=== PATIENT | female | born 1980 | race Caucasian/White ===

== ENCOUNTER 2017-09-11 10:15 | Inpatient (IN) | payer OTHER ==
[~2017-09-11] VITALS: Ht 160 cm; Wt 81.6 kg
[2017-09-15] MEDS ORDERED: OBTREX DHA PRE1 EACH PO (15:32)
== END 2017-09-19 14:09 | disposition home or self-care (01) | DRG 766 ==
LOC: OB/GYN 09-16 11:54 → LDR 09-16 11:54 → OB/GYN 09-16 17:24
PROVIDERS: Obstetrics & Gynecology
PROC: 0UL70ZZ Occlusion of Bilateral Fallopian Tubes, Open Approach (ICD-10-PCS; 2017-09-16)
PROC: 4A033R1 Measurement of Arterial Saturation, Peripheral, Percutaneous Approach (ICD-10-PCS; 2017-09-16)
PROC: 10D00Z1 Extraction of Products of Conception, Low, Open Approach (ICD-10-PCS; principal; 2017-09-16 16:00)
DX: O82 Encounter for cesarean delivery without indication (principal); Z3A.38 38 weeks gestation of pregnancy; Z37.0 Single live birth; Z30.2 Encounter for sterilization; O09.523 Supervision of elderly multigravida, third trimester

== ENCOUNTER 2022-05-02 05:31 | Day surgery (SDC) | payer OTHER ==
[~2022-05-02] VITALS: Ht 160 cm; Wt 83.5 kg
[~2022-05-02 05:31] MED LIST: OBTREX DHA PRE1 EACH PO
== END 2022-05-02 21:40 | disposition home or self-care (01) ==
LOC: CIR.AMB 05:31
PROVIDERS: ATTEND Surgery
DX: D05.11 Intraductal carcinoma in situ of right breast (principal); Z90.11 Acquired absence of right breast and nipple; R92.1 Mammographic calcification found on diagnostic imaging of breast; R59.0 Localized enlarged lymph nodes; Z20.822 Contact with and (suspected) exposure to COVID-19
CPT/HCPCS: 19303; 38525; 38792; 19281; 19357; 14301; 14302; A9541; L8699

== ENCOUNTER 2022-07-25 05:48 | Day surgery (SDC) | payer OTHER ==
[~2022-07-25] VITALS: Ht 160 cm; Wt 84.4 kg
[~2022-07-25 05:48] MED LIST changes: +TAMOXIFEN CITRA20 MG PO
== END 2022-07-25 15:40 | disposition home or self-care (01) ==
LOC: CIR.AMB 05:48
PROVIDERS: ATTEND Plastic Surgery
DX: Z90.11 Acquired absence of right breast and nipple (principal); N64.81 Ptosis of breast; N64.89 Other specified disorders of breast; Z20.822 Contact with and (suspected) exposure to COVID-19; Z85.3 Personal history of malignant neoplasm of breast